=== PATIENT | male | born 1940 | race Caucasian/White ===

== ENCOUNTER 2017-02-24 07:38 | Day surgery (SDC) | payer MEDICARE, OTHER ==
--- NOTE | ~2017-02-24 | EGD ---
EGD REPORT [facility] [address] [address] NAME: COOKIE LEWIS JR : 40 STATUS : REG [facility] PAT#: [id number] AGE: 76 ADM/REG DATE : 02/24/17 MR#: [id number] REPORT SERV DATE: 02/24/17 DICTATED BY: DATE: REPORT STATUS : Draft TRANSCRIBED BY: [employer] DATE: 02/24/17 [facility] Patient Name: Cookie Lewis Jr Date of : 1940 Attending MD: MOON MORA MD Procedure Date No Time: 02/24/2017 Procedure: Colonoscopy Indications: High risk colon CA surveillance: Personal history multiple (3 or more) adenomas Referring MD: Kady Yan Medicines: Monitored Anesthesia Care Complications: No immediate complications. Procedure: Pre-Anesthesia Assessment: - ASA Grade Assessment: II - A patient with mild systemic disease. After I obtained informed consent, the scope was passed under direct vision. Throughout the procedure, the patient's blood pressure, pulse, and oxygen saturations were monitored continuously. The PCF [id number] was introduced through the anus and advanced to the cecum, identified by appendiceal orifice and ileocecal valve. The colonoscopy was performed without difficulty. The patient tolerated the procedure well. The quality of the bowel preparation was excellent. Findings: The perianal and digital rectal examinations were normal. A sessile polyp was found in the cecum. The polyp was diminutive in size. The polyp was removed with a cold biopsy forceps. Resection and retrieval were complete. Multiple small and large-mouthed diverticula were found in the sigmoid colon. No other significant abnormalities were identified in a careful examination of the remainder of the colon. There is no endoscopic evidence of inflammation, mass, ulcerations or angioectasia in the entire colon. Internal hemorrhoids were found during retroflexion. No additional abnormalities were found on retroflexion. Impression: - One diminutive polyp in the cecum. Resected and retrieved. - Diverticulosis in the sigmoid colon. - Internal hemorrhoids. Recommendation: - Patient has a contact number available for EGD REPORT [address] [address] NAME: COOKIE LEWIS JR RADHA : 40 STATUS : REG [facility]#: [id number] AGE: 76 ADM/REG DATE : 02/24/17 MR#: [id number] REPORT SERV DATE: 02/24/17 DICTATED BY: DATE: REPORT STATUS : Draft TRANSCRIBED BY: [employer] DATE: 02/24/17 emergencies. The signs and symptoms of potential delayed complications were discussed with the patient. Return to normal activities tomorrow. Written discharge instructions were provided to the patient. - High fiber diet. - Continue present medications. - Await pathology results. - Repeat colonoscopy in 5 years for surveillance. Procedure Code(s): --- Professional --- 05012, Colonoscopy, flexible, proximal to splenic flexure; with biopsy, single or multiple Diagnosis Code(s): --- Professional --- D12.0, Benign neoplasm of cecum K64.8, Other hemorrhoids K57.30, Diverticulosis of large intestine without perforation or abscess without bleeding Z86.010, Personal history of colonic polyps CPT copyright 2013 [employer]. All rights reserved. The codes documented in this report are preliminary and upon digital ad trafficker review may be revised to meet current compliance requirements. MOON M MORA, MD 02/24/2017 10:54 AM This report has been signed electronically. Number of Addenda: 0 Note Initiated On: 02/24/2017 10:19 AM Scope Withdrawal Time 0 hours 17 minutes 59 seconds [address] [id number]
[~2017-02-24 07:38] MED LIST: BENEFIBE6 PO; FOLIC PO; HALF81 PO; LIPITOR40 PO; MAX25 PO; NORV10 PO; PRILO PO; SAW PALMETT2 PO; ZESTRIL20 MG PO; [UNRECOGNIZED DRUG - OTHER]
== END 2017-02-24 23:59 | disposition home or self-care (01) ==
LOC: DMU 07:38
PROVIDERS: Internal Medicine Gastroenterology
PROC: 0DBH8ZX Excision of Cecum, Via Natural or Artificial Opening Endoscopic, Diagnostic (ICD-10-PCS; principal; 2017-02-24 10:30)
DX: D12.0 Benign neoplasm of cecum (principal); K64.8 Other hemorrhoids; K57.30 Diverticulosis of large intestine without perforation or abscess without bleeding; I10 Essential (primary) hypertension; E78.00 Pure hypercholesterolemia, unspecified; K21.9 Gastro-esophageal reflux disease without esophagitis; Z86.010 Personal history of colon polyps; Z98.890 Other specified postprocedural states
CPT/HCPCS: 88305; A9270-GY